=== PATIENT | male | born 1975 ===

== ENCOUNTER 2022-01-16 05:53 | Day surgery (SDC) | payer OTHER ==
[~2022-01-16] VITALS: Ht 172.7 cm; Wt 81.6 kg
[~2022-01-16 05:53] MED LIST: ATACAND32 MG; ATORVASTATIN CA20 MG; ENBREL50 MG/1 ML; HUMALOG100 UNIT/2; KEPPRA500 MG; LAMICTAL200 M1; NEURONTIN300 MG; SYNTHROID112 MCG
[2022-01-16] MEDS ORDERED: PERCOCET 5-3251 EACH PO (09:56)
== END 2022-01-16 14:35 | disposition home or self-care (01) ==
LOC: CIR.AMB 05:53
PROVIDERS: ATTEND Surgery
DX: N52.01 Erectile dysfunction due to arterial insufficiency (principal); Z20.822 Contact with and (suspected) exposure to COVID-19; G47.33 Obstructive sleep apnea (adult) (pediatric); Z99.89 Dependence on other enabling machines and devices; E11.9 Type 2 diabetes mellitus without complications; E03.9 Hypothyroidism, unspecified; Z79.4 Long term (current) use of insulin
CPT/HCPCS: 54405; C1813